=== PATIENT | female | born 1940 | race Caucasian/White ===

== ENCOUNTER 2017-01-26 17:41 | Emergency (ER) | payer OTHER ==
[~2017-01-26] VITALS: Ht 149.9 cm; Wt 44.0 kg
[2017-01-26 17:49] VITALS: TEMP 37.6
[2017-01-26] MEDS ORDERED: ACETAMINOPHEN 500 MG TAB PO STA (18:03)
[2017-01-26] MEDS ORDERED: ALBUT/IPRATROP 3MG/0.5MG NEB 3 ML VIAL INH STA (18:03)
[2017-01-26] MEDS ORDERED: SODIUM CHLORIDE 0.9% 1000ML 1,000 ML IV ONE (18:03)
[2017-01-26] MEDS ORDERED: CEFEPIME IV 2,000 MG in DEXTROSE 5% 100ML 100 ML IV STA (18:03)
--- NOTE | 2017-01-26 18:10 | EMERGENCY ROOM VISIT NOTE ---
History Report prepared by Radha: Shaheed Meyer Under the Supervision of: Dr. Seun Bee M.D. First contact with patient: 17:58 Chief Complaint: FEVER Stated Complaint: CHILLS FEVER TIGHTNESS IN CHEST COUGH History of Present Illness The patient is a 76 year old female who presents to the Emergency Room with complaints of worsening pneumonia symptoms beginning two days ago. The patient states that she was diagnosed with pneumonia two weeks ago. She notes that she finished her antibiotic treatment three days ago with no relief to her symptoms. She denies vomiting but complains of chills, chest tightness, SOB, cough, and a decrease in her appetite and drinking. She denies having a previous history of pneumonia, COPD, and emphysema. The patient reports that she received a flu shot this year, she did not take any medication for her fever today. Source of History: patient Onset: two weeks ago Position: other (global) Quality: other (pneumonia symptoms) Timing: constant Associated Symptoms: + chills, + cough, + SOB, No vomiting Note: The patient also complains of chest tightness and a decrease in her appetite and drinking. Review of Systems See HPI for pertinent positives & negatives. A total of 10 systems reviewed and were otherwise negative. Past Medical & Surgical Medical Problems: (1) Pneumonia Family History No pertinent family history stated. Social History Smoking Status: Current Every Day Smoker Marital Status: Occupation Status: retired Current/Historical Medications Scheduled Amoxicillin & Pot Clavulanate (Augmentin 875-125 mg), 875 MG PO BID Atorvastatin (Lipitor), 40 MG PO HS Calcium Carbonate-Cholecalcife (Oyster Shell Calcium + D), 1 TAB PO DAILY Clopidogrel (Plavix), 75 MG PO DAILY Metoprolol Succinate (Metoprolol Succinate ER), Unknown Dose PO DAILY Scheduled PRN Lorazepam (Ativan), 1 MG PO Q6H PRN for Anxiety Allergies Coded Allergies: No Known Allergies (Unverified , 01/26/17) Physical Exam Vital Signs Date Time Temp Pulse Resp B/P (MAP) Pulse Ox O2 Delivery O2 Flow Rate FiO2 01/26/17 20:44 84 20 124/55 97 Room Air 01/26/17 19:50 89 20 145/61 96 Room Air 01/26/17 18:26 103 01/26/17 18:16 99 Room Air 01/26/17 17:49 37.6 98 20 189/79 98 Room Air Physical Exam GENERAL: Patient is in no acute distress. HEENT: No acute trauma, normocephalic atraumatic, mucous membranes moist, no nasal congestion, no scleral icterus. NECK: No stridor, no adenopathy, no meningismus, trachea is midline. LUNGS: Crackles in right upper and mid lung, no wheezing or rhonchi, no respiratory distress. HEART: Without murmurs gallops or rubs, regular rate and rhythm. ABDOMEN: Soft, nontender, bowel sounds positive, no hernias, no peritonitis. EXTREMITIES: No cyanosis or edema, full range of motion of all the joints without pain or difficulty, no signs for acute trauma. NEUROLOGIC: Oriented x 3, no acute motor or sensory deficits, no focal weakness. SKIN: No rash, no jaundice, no diaphoresis. Medical Decision & Procedures ER Provider Diagnostic Interpretation: Radiology results as stated below per my review and radiologist interpretation: CHEST ONE VIEW PORTABLE FINDINGS: Lung volumes are normal. There is no consolidation. Pulmonary vascularity is normal. Cardiomediastinal silhouette is normal. There is no pneumothorax or pleural effusion. IMPRESSION: No acute cardiopulmonary findings. Electronically signed by: Milo Patrick M.D. 01/26/2017 7:02 PM Laboratory Results 01/26/17 18:15 Red Blood Count 4.44, Mean Corpuscular Volume 91.7, Mean Corpuscular Hemoglobin 30.4, Mean Corpuscular Hemoglobin Concent 33.2, Mean Platelet Volume 10.6, Neutrophils (%) (Auto) 68.9, Lymphocytes (%) (Auto) 18.9, Monocytes (%) (Auto) 11.6, Eosinophils (%) (Auto) 0.2, Basophils (%) (Auto) 0.1, Neutrophils # (Auto ) 9.22, Lymphocytes # (Auto) 2.53, Monocytes # (Auto) 1.56, Eosinophils # (Auto ) 0.03, Basophils # (Auto) 0.02 01/26/17 18:15 Test 01/26/17 18:15 01/26/17 19:05 01/26/17 19:40 White Blood Count 13.40 K/uL (4.8-10.8) Red Blood Count 4.44 M/uL (4.2-5.4) Hemoglobin 13.5 g/dL (12.0-16.0) Hematocrit 40.7 % (37-47) Mean Corpuscular Volume 91.7 fL (80-100) Mean Corpuscular Hemoglobin 30.4 pg (25-34) Mean Corpuscular Hemoglobin Concent 33.2 g/dl (32-36) Platelet Count 167 K/uL (130-400) Mean Platelet Volume 10.6 fL (7.4-10.4) Neutrophils (%) (Auto) 68.9 % Lymphocytes (%) (Auto) 18.9 % Monocytes (%) (Auto) 11.6 % Eosinophils (%) (Auto) 0.2 % Basophils (%) (Auto) 0.1 % Neutrophils # (Auto) 9.22 K/uL (1.4-6.5) Lymphocytes # (Auto) 2.53 K/uL (1.2-3.4) Monocytes # (Auto) 1.56 K/uL (0.11-0.59) Eosinophils # (Auto) 0.03 K/uL (0-0.5) Basophils # (Auto) 0.02 K/uL (0-0.2) RDW Standard Deviation 44.4 fL (36.4-46.3) RDW Coefficient of Variation 13.3 % (11.5-14.5) Immature Granulocyte % (Auto) 0.3 % Immature Granulocyte # (Auto) 0.04 K/uL (0.00-0.02) Prothrombin Time 10.3 SECONDS (9.0-12.0) Prothromb Time International Ratio 1.0 (0.9-1.1) Activated Partial Thromboplast Time 27.4 SECONDS (21.0-31.0) Partial Thromboplastin Ratio 1.1 Anion Gap 9.0 mmol/L (3-11) Est Creatinine Clear Calc Drug Dose 24.9 ml/min Estimated GFR () 45.2 Estimated GFR (Non- 39.0 BUN/Creatinine Ratio 11.0 (10-20) Calcium Level 10.3 mg/dl (8.5-10.1) Total Bilirubin 1.2 mg/dl (0.2-1) Aspartate Amino Transf (AST/SGOT) 22 U/L (15-37) Alanine Aminotransferase (ALT/SGPT) 36 U/L (12-78) Alkaline Phosphatase 96 U/L (45-117) Total Protein 8.2 gm/dl (6.4-8.2) Albumin 3.9 gm/dl (3.4-5.0) Globulin 4.3 gm/dl (2.5-4.0) Albumin/Globulin Ratio 0.9 (0.9-2) Influenza Type A Antigen Neg for Influ A (NEG) Influenza Type B Antigen Neg for Influ B (NEG) Urine Color YELLOW Urine Appearance CLEAR (CLEAR) Urine pH 8.5 (4.5-7.5) Urine Specific [place] 1.009 (1.000-1.030) Urine Protein NEG (NEG) Urine Glucose (UA) NEG (NEG) Urine Ketones NEG (NEG) Urine Occult Blood NEG (NEG) Urine Nitrite NEG (NEG) Urine Bilirubin NEG (NEG) Urine Urobilinogen NEG (NEG) Urine Leukocyte Esterase SMALL (NEG) Urine WBC (Auto) 5-10 /hpf (0-5) Urine RBC (Auto) 0-4 /hpf (0-4) Urine Hyaline Casts (Auto) 0 /lpf (0-5) Urine Epithelial Cells (Auto) 10-20 /lpf (0-5) Urine Bacteria (Auto) NEG (NEG) 01/26/2017 20:42 POC Lactic Acid 1.14 Laboratory results reviewed by me. Medications Administered Medications (Trade) Dose Ordered Sig/Soha Route Start Time Stop Time Status Last Admin Dose Admin Sodium Chloride 1,000 ml @ 999 mls/hr Q1H1M ONCE IV 01/26/17 18:03 01/26/17 19:03 DC 01/26/17 18:58 999 MLS/HR Acetaminophen (Tylenol Tab) 1,000 mg NOW STAT PO 01/26/17 18:03 01/26/17 18:05 DC 01/26/17 18:58 1,000 MG Cefepime HCl 2000 mg/Dextrose 112.5 ml @ 200 mls/hr ONE STAT IV 01/26/17 18:03 01/26/17 18:36 DC 01/26/17 18:58 200 MLS/HR Albuterol/ Ipratropium (Duoneb) 3 ml NOW STAT INH 01/26/17 18:03 01/26/17 18:05 DC 01/26/17 18:58 3 ML ECG Indication: SOB/dyspnea Rate (beats per minute): 86 Rhythm: normal sinus (with significant baseline artifact) Findings: no ectopy, other (no obvious ischemic change) ED Course 1758: The patient was evaluated in room A10. A complete history and physical exam was performed. 1802: Duoneb 3ml INH, Cefepime HCl 2,000 mg/Dextrose 112.5ml @ 200mls/hr IV, Tylenol Tab 1000mg PO, Sodium Chloride 1000 ml @ 999 mls/hr IV 2032: I reevaluated and updated the patient. Medical Decision Differential diagnoses include: sepsis, pneumonia, bronchitis, sinusitis, dehydration, electrolyte imbalance, bacteremia, influenza, and UTI. There is a mild leukocytosis, this is certainly consistent with infection. No concerning anemia. No significant electrolyte abnormality, kidney failure or hepatitis. Lactic acid level is not elevated making sepsis less likely. Urinalysis does not show infection. Influenza testing is negative. Blood cultures are pending. EKG shows a normal sinus rhythm, no acute ischemia. Chest x-ray does not show any obvious pneumonia, COPD changes were seen. The patient received IV saline, a DuoNeb, oral Tylenol. She was given oral Augmentin and IV cefepime. She feels improved, her vital signs have improved. The patient has bronchitis or early pneumonia. She is not hypoxic, she is not toxic, she looks well and would like to be discharged home. I think this is reasonable. She will be discharged on Augmentin. Rest and hydration and good follow-up were recommended. If worsening, she has agreed to return. Medication Reconcilliation Current Medication List: was personally reviewed by me Blood Pressure Screening Patient's blood pressure: Elevated blood pressure Blood pressure disposition: Elevated BP felt to be situational Impression Primary Impression: Fever Additional Impression: Acute bronchitis Scribe Attestation The scribe's documentation has been prepared under my direction and personally reviewed by me in its entirety. I confirm that the note above accurately reflects all work, treatment, procedures, and medical decision making performed by me. Departure Information Dispostion Home / Self-Care Prescriptions Amoxicillin & Pot Clavulanate (Augmentin 875-125 mg) 1 Tab Tab 875 MG PO BID for 10 Days, #20 TAB Prov: Seun Bee M.D. 01/26/17 Forms HOME CARE DOCUMENTATION FORM, IMPORTANT VISIT INFORMATION Patient Instructions My [facility] Additional Instructions fluids rest tylenol for pain and fever augmentin 2x per day for 10 days see chante quiroz this upcoming week for a recheck return for worsening breathing, if not improving Problem Qualifiers
[2017-01-26 18:16] VITALS: O2SAT 99; Ht 149.9 cm; Wt 44.0 kg
[2017-01-26] MEDS ORDERED: CALC-211 PO (18:45)
[2017-01-26] MEDS ORDERED: ATOR-24 PO (18:45)
[2017-01-26] MEDS ORDERED: ATV/1 PO (18:45)
[2017-01-26] MEDS ORDERED: CLOP1TAB15 PO (18:45)
[2017-01-26] MEDS ORDERED: TPRSR/25 PO (18:46)
[2017-01-26 18:48] LABS: BASO % 0.1 %; BASO ABS # 0.02 K/uL (0-0.2); COMPLETE YES; EOS % 0.2 %; HEMATOCRIT 40.7 % (37-47); IG% 0.3 %; LYMPH % 18.9 %; LYMPH ABS # 2.53 K/uL (1.2-3.4); MEAN CELL VOLUME 91.7 fL (80-100); MEAN CORPUSCULAR HEMOGLOBIN 30.4 pg (25-34); MEAN CORPUSCULAR HGB CONC 33.2 g/dl (32-36); MEAN PLATELET VOLUME 10.6 fL (7.4-10.4); MONO % 11.6 %; NEUT % 68.9 %; PLATELET COUNT 167 K/uL (130-400); RED BLOOD COUNT 4.44 M/uL (4.2-5.4)
--- NOTE | 2017-01-26 19:04 | DIAGNOSTIC IMAGING REPORT ---
CHEST ONE VIEW PORTABLE CLINICAL HISTORY: Sepsis. COMPARISON STUDY: No previous studies for comparison. FINDINGS: Lung volumes are normal. There is no consolidation. Pulmonary vascularity is normal. Cardiomediastinal silhouette is normal. There is no pneumothorax or pleural effusion. IMPRESSION: No acute cardiopulmonary findings. Electronically signed by: Milo Patrick M.D. 01/26/2017 7:02 PM Dictated Date/Time: 01/26/2017 7:01 PM
[2017-01-26 19:07] LABS: PARTIAL THROMBOPLASTIN RATIO 1.1; PROTHROMBIN TIME (PATIENT) 10.3 SECONDS (9.0-12.0)
[2017-01-26 19:12] LABS: CALCIUM 10.3 mg/dl (8.5-10.1); CREATININE 1.33 mg/dl (0.60-1.20)
[2017-01-26 19:58] LABS: URINE APPEARANCE CLEAR (CLEAR); URINE BILIRUBIN NEG (NEG); URINE COLOR YELLOW; URINE NITRITE NEG (NEG); URINE PH 8.5 (4.5-7.5); URINE SPECIFIC GRAVITY 1.009 (1.000-1.030); UROBILINOGEN NEG (NEG); ZZUR CULT IF INDIC CLEAN CATCH NO
[2017-01-26 19:58] LABS: POTASSIUM 3.6 mmol/L (3.5-5.1)
[2017-01-26 20:05] LABS: ALB/GLOB RATIO 0.9 (0.9-2)
[2017-01-26 20:21] LABS: MANUAL MICROSCOPIC REQUIRED? NO; REVIEW REQ? NO
[2017-01-26 20:22] LABS: SULFASALICYLIC ACID NEG (NEG)
[2017-01-26 20:44] VITALS: BP 124/55; PULSE 84; O2SAT 97
[2017-01-26] MEDS ORDERED: AMOX875T PO (20:45)
[2017-01-26] MEDS ORDERED: AMOXICILLIN/CLAVULANATE TAB 875 MG TAB PO ONE (21:00)
== END 2017-01-26 20:58 | disposition home or self-care (01) ==
LOC: C.EDB 17:42 → C.EDA 20:58
DX: J20.9 Acute bronchitis, unspecified (principal); F17.200 Nicotine dependence, unspecified, uncomplicated; Z79.899 Other long term (current) drug therapy; Z87.01 Personal history of pneumonia (recurrent)